=== PATIENT | male | born 1990 | race Caucasian/White ===

== ENCOUNTER 2017-04-21 11:32 | Emergency (ER) | payer OTHER ==
[2017-04-21 11:51] VITALS: RESP 16; O2SAT 97
--- NOTE | 2017-04-21 12:18 | EDPHY ---
H & P Stated Complaint: L facial lac Time Seen by Provider: 04/21/17 12:17 HPI/ROS: HPI: This is a 26-year-old male who presents with Chief Complaint: L facial lac Location: Left cheek Quality: Injury Duration: Prior to arrival Signs and Symptoms: No LOC, no neck pain, no dizziness, no amnesia + bleeding, no radiation, no numbness, no weakness, no tingling, no incontinence, no decreased range of motion, no swelling, + pain Timing: Sudden Severity: Moderate to severe Context: Patient reports that he was at work on a job site when a 2 x 4 board accidentally hit him in the left cheek. He reports that his friend was tossing it up to his co-worker; it hit another board and the board fell back down, hitting him in the left cheek. Denies LOC/amnesia/nausea/vomiting/vision impairment. He is complaining of left cheek moderate constant pain, worse with touching the area. Tetanus status unknown. He noted there was a small cut to his left cheek and started to bleed. He applied direct pressure. Modifying Factors: See above Comment: ROS: see HPI Constitutional: No fever, no chills, no weight loss Eyes: No blurred vision Respiratory: No shortness of breath, no cough Cardiovascular: No chest pain Gastrointestinal: No nausea, no vomiting no diarrhea Genitourinary: No dysuria Extremities: No myalgias Neurologic: No weakness, no numbness Skin: No rashes Hematologic: No bruising, no bleeding MEDICAL/SURGICAL/SOCIAL HISTORY: Medical history: Generally healthy. Does not take any regular medications. Surgical history: Appendectomy Social history: Employed CONSTITUTIONAL: Pleasant adult male, awake and alert, no obvious distress HEENT: 0.25 cm linear superficial simple abrasion left cheek with moderate ecchymosis and swelling; tenderness to palpation. and normocephalic. PERRL, EOMI. no globe entrapment, no raccoon eyes. no Cramer signs.Tympanic membranes clear. No tympanic membrane rupture. Nares patent; no septal hematoma. Oropharynx clear, no exudate and moist pink mucosa. No malocclusion. no dental trauma. Airway patent. No lymphadenopathy. NECK: supple, no midline tenderness, flexion 45 degrees, extension 45 degrees, right and left lateral flexion 45 degrees. No meningismus. Cardiovascular: Normal S1/S2, regular rate, regular rhythm, without murmur rub or gallop. PULMONARY/CHEST: Symmetrical and nontender. no crepitus. Clear to auscultation bilaterally. Good air movement. No accessory muscle usage. ABDOMEN: Soft, nondistended, nontender, no ecchymosis, no rebound, no guarding , no peritoneal signs, no masses or organomegaly. No CVAT. PELVIC: no pain with rocking; bilateral hips flexion 125 degrees, extension 30 degrees, with no pain internal rotation and no pain external rotation. BACK: No midline tenderness, no paraspinous spasm, deep tendon reflexes 2/2, no pain with straight leg raise EXTREMITIES: 2/2 pulses, no deformities, no clubbing, no cyanosis or edema. NEUROLOGICAL: no focal neuro deficits. GCS 15. SKIN: Warm and dry, no erythema. no rash. Good capillary refill. Source: Patient Exam Limitations: No limitations - Personal History Current Tetanus/Diphtheria Vaccine: Unsure Current Tetanus Diphtheria and Acellular Pertussis (TDAP): Unsure - Medical/Surgical History Hx Asthma: No Hx Chronic Respiratory Disease: No Hx Diabetes: No Hx Cardiac Disease: No Hx Renal Disease: No Hx Cirrhosis: No Hx Alcoholism: No Hx HIV/AIDS: No Hx Splenectomy or Spleen Trauma: No Other PMH: appy - Social History Smoking Status: Never smoked Constitutional: Initial Vital Signs Temperature (C) 36.6 C 04/21/17 11:49 Heart Rate 67 04/21/17 11:49 Respiratory Rate 16 04/21/17 11:49 Blood Pressure 147/77 H 04/21/17 11:49 O2 Sat (%) 97 04/21/17 11:49 O2 Delivery Mode Room Air Allergies/Adverse Reactions: No Known Allergies Allergy (Unverified 04/21/17 11:49) Home Medications: Medication Instructions Recorded Cephalexin [Keflex (*)] 500 mg PO QID #40 cap 04/21/17 oxyCODONE/APAP 5/325 [Percocet 1 - 2 tab PO Q6H PRN #10 tab 04/21/17 5/325 (*)] Medical Decision Making ED Course/Re-evaluation: Wound care with LET topical; mild soap and water; small Steri-Strips applied. Tetanus booster given. No neurological deficits. CT maxillofacial scan ordered due to sensitivity over left cheek and concern for inferior orbital rim fracture Called by radiologist who advised her is a depressed anterior left maxillary sinus fracture and a nondisplaced inferior wall orbital fracture but no ruptured globe or retro-orbital hemorrhage. Given Keflex; wound care instructions; fracture precautions; close ophthalmology follow-up This patient was seen under the supervision of my secondary supervising physician. I evaluated care for this patient independently. Differential Diagnosis: Differential diagnosis includes but is not limited to laceration, orbital fracture, contusion, concussion. - Data Points Medications Given: Discontinued Medications Hydrocodone Bitart/Acetaminophen (Woolwine 5/325) 1 tab PO EDNOW ONE Stop: 04/21/17 12:27 Last Admin: 04/21/17 12:32 Dose: 1 tab Diphtheria/Tetanus/Acell Pertussis (Boostrix) 0.5 ml IM .ONCE ONE Stop: 04/21/17 12:27 Last Admin: 04/21/17 12:33 Dose: 0.5 ml Tetracaine/Epinephrine/Lidocaine (Let Gel Topical) 1 ea TP EDNOW ONE Stop: 04/21/17 12:27 Last Admin: 04/21/17 12:33 Dose: 1 ea Departure - Departure Disposition: Home, Routine, Self-Care Clinical Impression: Closed fracture of maxillary sinus Qualifiers: Encounter type: initial encounter Qualified Code(s): S02.401A - Maxillary fracture, unspecified side, initial encounter for closed fracture Fracture of inferior orbital wall Qualifiers: Encounter type: initial encounter Fracture type: closed Laterality: left Qualified Code(s): S02.32XA - Fracture of orbital floor, left side, initial encounter for closed fracture Contusion of cheek Qualifiers: Encounter type: initial encounter Qualified Code(s): S00.83XA - Contusion of other part of head, initial encounter Condition: Good Instructions: Facial Fracture (ED), Contusion in Adults (ED) Additional Instructions: Please take Cephalexin 500 mg 4 times a day times 10 days. Use [id number] decongestants like Sudafed as needed for nasal congestion. Allow the Steri-Strips to fall off on their own. Apply [id number] topical antibiotic ointment daily until fully healed. Take Tylenol 650 mg every 4 hours and/or Ibuprofen 600 mg every 8 hours with food as needed for pain. Use Percocet every 6 hours as needed for severe/break through pain. Do not use Tylenol and Percocet concomitantly. Apply ice for 30 minutes at a time; 2-3 times per day for the next 1-2 days. Please avoid nose blowing and any physical or contact activities until seen by Ophthalmology. Follow up with Ophthalmology for full dilated exam in the next 3-5 days. Referrals: Hernando Demarco MD [Medical Doctor] - As per Instructions Prescriptions: Cephalexin [Keflex (*)] 500 mg PO QID #40 cap oxyCODONE/APAP 5/325 [Percocet 5/325 (*)] 1 - 2 tab PO Q6H PRN #10 tab PRN Reason: Pain, Severe
[2017-04-21] MEDS ORDERED: HYDROCODONE/APAP 5/325 TAB PO ONE (12:26)
[2017-04-21] MEDS ORDERED: LET GEL TOPICAL 1 EA SYR TP ONE (12:26)
[2017-04-21] MEDS ORDERED: TDAP ADULT 0.5 ML INJ (BOOSTRIX) IM ONE (12:26)
[2017-04-21] MEDS ORDERED: CEPHALEXIN 500 MG CAP PO ONE (13:34)
[2017-04-21 14:01] VITALS: BP 161/81; PULSE 64; TEMP 98.1
== END 2017-04-21 14:01 | disposition home or self-care (01) ==
DX: S02.401A Maxillary fracture, unspecified side, initial encounter for closed fracture (principal); S02.32XA Fracture of orbital floor, left side, initial encounter for closed fracture; S00.83XA Contusion of other part of head, initial encounter; Z23 Encounter for immunization; W22.8XXA Striking against or struck by other objects, initial encounter; Y92.69 Other specified industrial and construction area as the place of occurrence of the external cause; Y99.0 Civilian activity done for income or pay; Y93.89 Activity, other specified